=== PATIENT | female | born 1955 | race Caucasian/White ===

== ENCOUNTER 2017-01-02 09:21 | Emergency (ER) | payer BC ==
--- NOTE | 2017-01-02 10:46 | DIAGNOSTIC IMAGING REPORT ---
PROCEDURE: CT HEAD WITHOUT CONTRAST INDICATION: Left homonymous hemianopsia. TECHNIQUE: Noncontrast axial images with sagittal and coronal reformations. COMPARISON: None. FINDINGS: Allowing for mild motion, brain and ventricles are normal. No evidence of an acute process or hemorrhage. Sinuses and mastoids are normal. IMPRESSION: 1. Negative head CT. 2. Findings discussed with Dr. Carlos Butcher at [address] scans at this facility use dose modulation, iterative reconstruction, and/or weight-based dosing when appropriate to reduce radiation dose to as low as reasonably achievable.
--- NOTE | 2017-01-02 12:26 | DIAGNOSTIC IMAGING REPORT ---
PROCEDURE: MRA HEAD WITHOUT CONTRAST INDICATION: Hemianopsia. Dizziness. TECHNIQUE: Thin-cut gradient axial images with 3D MIP reconstructions in sagittal, axial, and coronal projections. COMPARISON: Comparison is made to MRI brain today (01/02/2017). FINDINGS: Left vertebral artery is not visualized suggesting occlusion. Right vertebral artery and basilar artery are normal. Posterior cerebral arteries are patent. Internal carotid arteries, anterior and middle cerebral arteries are normal. [place] is within normal limits. IMPRESSION: 1. Left vertebral artery is not visualized suggesting vascular occlusion (versus hypoplasia). 2. Otherwise normal MR angiogram of the [place] and intracranial vessels. 3. Findings discussed with Dr. Carlos Butcher.
--- NOTE | 2017-01-02 12:26 | DIAGNOSTIC IMAGING REPORT ---
PROCEDURE: MRA HEAD WITHOUT CONTRAST INDICATION: Hemianopsia. Dizziness. TECHNIQUE: Thin-cut gradient axial images with 3D MIP reconstructions in sagittal, axial, and coronal projections. COMPARISON: Comparison is made to MRI brain today (01/02/2017). FINDINGS: Left vertebral artery is not visualized suggesting occlusion. Right vertebral artery and basilar artery are normal. Posterior cerebral arteries are patent. Internal carotid arteries, anterior and middle cerebral arteries are normal. [place] is within normal limits. IMPRESSION: 1. Left vertebral artery is not visualized suggesting vascular occlusion (versus hypoplasia). 2. Otherwise normal MR angiogram of the [place] and intracranial vessels. 3. Findings discussed with Dr. Carlos Butcher.
--- NOTE | 2017-01-02 12:33 | DIAGNOSTIC IMAGING REPORT ---
PROCEDURE: MR BRAIN W/WO CONTRAST INDICATION: Hemianopsia. Dizziness. TECHNIQUE: T1 sagittal and T2 coronal images. T1, T2, FLAIR, gradient, and diffusion axial images of the brain. Following 15 ml of intravenous gadolinium, FAT-SAT T1 sagittal, axial and coronal images were obtained. COMPARISON: Comparison is made to a head CT earlier today (01/02/2017). FINDINGS: There is a 1.4 cm acute area of infarction in the left superior cerebellar vermis (restricted diffusion).. There is a 1.4 cm nonenhancing heterogeneous area of signal in the mesial left occipital lobe (without restricted diffusion). The rest of the brain and ventricles are within normal limits. No evidence of mass effect or hydrocephalous. Sinuses and mastoids are normal. IMPRESSION: 1. There is a 1.4 cm linear area of acute infarction in the left superior cerebellar vermis. 2. There is a 1.4 cm ovoid heterogeneous area of abnormal signal in the left mesial occipital lobe compatible with a subacute area of infarction. 3. Findings discussed with Dr. Carlos Butcher.
--- NOTE | 2017-01-02 12:34 | DIAGNOSTIC IMAGING REPORT ---
PROCEDURE: XR CHEST 1 VIEW INDICATION: CVA. TECHNIQUE: Portable AP view (1230 hours). COMPARISON: None. FINDINGS: Allowing for overlying wires and electrodes, lungs are clear. Heart and mediastinum are normal. Thorax is normal. IMPRESSION: 1. Negative chest.
--- NOTE | 2017-01-02 14:46 | DIAGNOSTIC IMAGING REPORT ---
PROCEDURE: US BILATERAL CAROTID DOPPLER INDICATION: STROKE/CVA TECHNIQUE: Color Doppler duplex imaging of the carotid and vertebral vessels. COMPARISON: None. FINDINGS: Right common carotid artery peak systolic velocity 76 cm/second. Right internal carotid artery peak systolic velocity 98 cm/second. Right external carotid artery peak systolic velocity 97 cm/second. Right ddactcyw-ew-abuwut carotid artery ratio 1.3 Right vertebral artery peak systolic velocity 37 cm/second antegrade. Left common carotid artery peak systolic velocity 75 cm/second. Left internal carotid artery peak systolic velocity 85 cm/second. Left external carotid artery peak systolic velocity 72 cm/second. Left mdutliwf-rh-puaics carotid artery ratio 1.1 Left vertebral artery peak systolic velocity 42 cm/second antegrade. IMPRESSION: 1. Mild atheromatous plaque at the carotid bifurcations. 2. No evidence of significant stenosis. 3. No evidence of vertebral artery occlusion. 4. Findings discussed with Dr. Butcher. Velocity criteria are extrapolated from diameter data as defined by the Society of Radiologists in Ultrasound Consensus Conference, Radiology 2003; 229; 340-346.
--- NOTE | 2017-01-02 14:46 | DIAGNOSTIC IMAGING REPORT ---
PROCEDURE: US BILATERAL CAROTID DOPPLER INDICATION: STROKE/CVA TECHNIQUE: Color Doppler duplex imaging of the carotid and vertebral vessels. COMPARISON: None. FINDINGS: Right common carotid artery peak systolic velocity 76 cm/second. Right internal carotid artery peak systolic velocity 98 cm/second. Right external carotid artery peak systolic velocity 97 cm/second. Right kechfjdr-dc-igiopn carotid artery ratio 1.3 Right vertebral artery peak systolic velocity 37 cm/second antegrade. Left common carotid artery peak systolic velocity 75 cm/second. Left internal carotid artery peak systolic velocity 85 cm/second. Left external carotid artery peak systolic velocity 72 cm/second. Left drvdytkt-ie-oiesys carotid artery ratio 1.1 Left vertebral artery peak systolic velocity 42 cm/second antegrade. IMPRESSION: 1. Mild atheromatous plaque at the carotid bifurcations. 2. No evidence of significant stenosis. 3. No evidence of vertebral artery occlusion. 4. Findings discussed with Dr. Butcher. Velocity criteria are extrapolated from diameter data as defined by the Society of Radiologists in Ultrasound Consensus Conference, Radiology 2003; 229; 340-346.
--- NOTE | 2017-01-02 14:57 | ED NURSING NOTES ---
Clinical Report - Nurses [facility] [address] [place] [address] 01/02/2017 9:24 Patient: LASHAWN ROBERTS I TRIAGE Triage time 09:34. Acuity: LEVEL 3. Chief Complaint: DIZZINESS and WEAKNESS and (Black spot in eye, was disoriented last night). --09:39 Ericka Romo R.N. 09:33 01/02/17. BP: 121/67. HR: 80. RR: 12. O2 saturation: 100%. Temp: 98.3 F. Pain level now 0/10. --09:39 Ericka Romo R.N. Weight: 113.3 kg estimated. Height/Length: 64 inches Per Patient. BMI: 42.9. --09:33 Ericka Romo R.N. Medications Amitriptyline HCl Oral. --09:41 Ericka Romo R.N. Abilify Oral. --09:41 Ericka Romo R.N. Lisinopril Oral. --09:41 Ericka Romo R.N. Lyrica Oral. --09:41 Ericka Romo R.N. Simvastatin Oral. --09:41 Ericka Romo R.N. Allergies Haldol. --09:36 Ericka Romo R.N. Geodon. --09:37 Ericka Romo R.N. The following entry was struck by Ericka Romo R.N., 09:37 (01/02/17) Reason - wrong value. <<STRICKEN ENTRY-- Geod. --09:37 Ericka Romo R.N. --END STRIKE>>. History Historian: patient. This started last night. ( limited peripheral vision, at onset had a pain go across her head). Treatment SENIOR PRODUCT ANALYST: None. PAST MEDICAL HX: Immunizations: up-to-date. SOCIAL HX: Never smoker. No alcohol use or drug use. --09:39 Ericka Romo R.N. PROBLEMS: Pre diabetic. Polyneuropathy. Hypertension. Anxiety Reaction. --09:36 Ericka Romo R.N. PHYSICAL ASSESSMENT To room via wheelchair. Patient gowned. GENERAL / NEURO / PSYCH: Oriented X 4. Appears anxious. Alert. Speech within normal limits. RESPIRATORY: Respirations not labored. --09:40 Ericka Romo R.N. NURSING PROGRESS NOTES Patient gowned. Two patient identifiers checked. Call light placed in reach. Side rails up x 1. Patient ready for evaluation- ED physician notified. --09:40 Ericka Romo R.N. 09:42 01/02/2017 Site #1 started via IV in the right antecubital space with an 20g angiocath, with aseptic technique and good blood return; one attempt. Blood drawn: rainbow set. Labeled in the presence of the patient and sent to the lab. Saline lock flushed with 10 mL saline. --09:42 Ericka Romo R.N. EKG time: (937). EKG was ordered, performed by a tech and shown to the ED physician. --09:45 Dorina Tariq 10:31 01/02/17. HR: 75. RR: 16. O2 saturation: 100%. --10:32 Ericka Romo R.N. The patient is resting quietly. ( CT done and awaiting MRI). --10:32 Ericka Romo R.N. GENERAL / NEURO / PSYCH: Patient is calm and cooperative. Affect appears normal. Alert. Oriented X 4. RESPIRATORY: No respiratory distress. SKIN: Skin is warm. Patient transported to MRI. (1050). Patient returned by wheelchair with nurse and tech. (1200). --12:01 Ericka Romo R.N. 11:59 01/02/17. BP: 107/47. HR: 76. RR: 14. O2 saturation: 100%. Pain level now 0/10. --12:01 Ericka Romo R.N. Patient waiting for (ultra sound). --13:05 Ericka Romo R.N. 13:05 01/02/17. BP: 128/73. HR: 72. RR: 18. O2 saturation: 100%. Pain level now 0/10. --13:06 Ericka Romo R.N. The patient reports no complaints and she is resting quietly. ( unchanged). --13:06 Ericka Romo R.N. 13:55 01/02/17. HR: 76. RR: 16. O2 saturation: 100%. Pain level now 0/10. --13:55 Ericka Romo R.N. ( Ultra sound at the bedside). --13:55 Ericka Romo R.N. 14:58 01/02/2017 Aspirin PO 325 mg given. Allergies verified and confirmed 5 rights. --14:58 Ericka Romo R.N. 14:58 01/02/2017 Site #1 removed upon discharge. Bandaid applied. --14:58 Ericka Romo R.N. DISPOSITION / DISCHARGE Departure time: 15:05. Condition at departure: improved. No learning barriers present. Discharge instructions provided and reviewed with the patient. Patient verbalized understanding. Written instructions provided in [place]. The patient was discharged home and accompanied by spouse. She left the Emergency Department in a wheelchair and via private vehicle. Family member driving. --15:05 Ericka Romo R.N. 14:58 01/02/17. BP: 109/80. HR: 78. RR: 14. O2 saturation: 98%. Pain level now 0/10. --15:05 Ericka Romo R.N. Locked/Released at 01/03/2017 7:06 by Ericka Romo R.N.
--- NOTE | 2017-01-02 14:57 | ED CLINICAL REPORT ---
Clinical Report - Physicians/Mid Levels [facility] [address] [place] [address] 01/02/2017 9:24 Patient: LASHAWN ROBERTS I Time Seen: 09:48 Jan 02 2017. Arrived- By private vehicle. Historian- patient. CPT: ER phys charges level 5 plus (#[id number]). EKG interpretation (#[id number]). HISTORY OF PRESENT ILLNESS Chief Complaint: VISUAL DISTURBANCE. This started yesterday, patient was last known well (yesterday) and is still present (persistent). (Headache yesterday during initial event.). She has had visual disturbance. At its maximum deficit described as moderate. When seen in the E.D.,deficit described as moderate. The patient has had moderate dizziness described as a light-headedness (transient , now resolved.). No altered mental status or blackouts. Usually is alert and oriented X3 and has normal mobility. Similar symptoms previously: None. Recent medical care: Not recently seen/assessed. REVIEW OF SYSTEMS No fever, head injury, chest pain or pain or difficulty breathing. No cough, sputum production, sore throat or throat or abdominal pain. No nausea, diarrhea, black stools or stools or difficulty with urination. No skin rash or rash, enlarged lymph nodes, joint pain or vomiting. No chills, fever, cough, difficulty breathing or bloody stools. No hematuria, weakness, diabetic symptoms or easy bruising. The patient has had a headache. No difficulty walking. All systems otherwise negative, except as recorded above. PAST HISTORY ( Pre diabetic. Polyneuropathy. Hypertension. Anxiety Reaction.). Hyperlipidemia. Medications: Simvastatin Oral. Lyrica Oral. Lisinopril Oral. Abilify Oral. Amitriptyline HCl Oral. Allergies: Geodon. Haldol. SOCIAL HISTORY Never smoker. No alcohol use or drug use. ADDITIONAL NOTES The nursing notes have been reviewed. PHYSICAL EXAM Vital Signs: 01/02/2017 09:33 BP: 121/67. HR: 80. RR: 12. O2 saturation: 100%. Appearance: Alert. No acute distress. Head: Head atraumatic. Eyes: Pupils equal, round and reactive to light. Visual field deficit bilaterally right-sided homonymous hemianopsia. ENT: Normal ENT inspection. Airway intact. Pharynx normal. Neck: Normal inspection. Neck supple. No carotid bruit. CVS: Normal heart rate and rhythm. Heart sounds normal. Pulses normal. Respiratory: No respiratory distress. Breath sounds normal. Abdomen: Soft and nontender. Back: Normal inspection. Skin: Skin warm. Normal skin color. No rash. Extremities: Extremities exhibit normal ROM. No lower extremity edema. Neuro: Alert. Oriented X 3. Mood/affect normal. Speech normal. Cranial nerves normal (as tested). No cerebellar findings. No motor deficit. No sensory deficit. Reflexes normal. NIH Stroke Scale: score 1. Level of Consciousness: alert (0). LOC Questions: both (0). LOC Commands: both (0). Best gaze: normal (0). Visual field loss: partial hemianopsia (1). Facial palsy: normal (0). Motor arm: no drift right arm (0) and no drift left arm (0). Motor leg: no drift right leg (0) and no drift left leg (0). Limb ataxia: none (0). Sensory loss: none (0). Aphasia: none (0). Dysarthria: normal (0). Extinction and inattention: none (0). LABS, X-RAYS, AND EKG EKG: Normal EKG. Chest X-ray: Normal Chest X-Ray. CT Head: No acute disease. MRI Brain: Note- MRA cannot see left vertebral artery. Acute infarct 14mm left cerebellar hemisphere and left 1.4 cm L mesial occiptial lobe: appears subacute. Study type: The study was independently viewed by me, interpreted by the radiologist and discussed with the radiologist. Laboratory Tests: CBC w Diff: (KATELYN: 01/02/2017 09:45) ( MsgRcvd 01/02/2017 10:45) Final results Test Result Flag Units (Reference) WHITE BLOOD COUNT 7.6 K/uL (4.5-11.5) RED BLOOD COUNT 5.28 H M/uL (4.00-5.20) HEMOGLOBIN 12.9 gm/dL (12.0-16.0) HEMATOCRIT 40.4 % (36.0-46.0) MEAN CELL VOLUME 77 L fL (80-100) MEAN CORPUSCULAR HGB 25 L pg (26-34) MEAN CORPUSCULAR HGB CONC 32 g/dL (31-37) RED CELL DISTRIBUTION WIDTH 17.1 H % (11.6-14.8) PLATELET COUNT 255 K/uL (150-400) NEUTROPHIL % 53.5 % (50-75) LYMPH % 37.4 % (25-40) MONO % 6.3 % (3-14) EOSINOPHIL % 2.0 % (0-4) BASOPHIL % 0.8 % (0-2) CHEM 13 PANEL: (KATELYN: 01/02/2017 09:45) ( MsgRcvd 01/02/2017 10:36) Final results Test Result Flag Units (Reference) GLUCOSE 121 H mg/dL (70-110) BUN 11 mg/dL (7-18) CREATININE 0.9 mg/dL (0.6-1.3) Estimated GFR >60 mL/min Estimated GFR- >60 mL/min Note: Persistent reduction over 3 months in eGFR<60 mL/min/1.73 m2 defines CKD. Patients with eGFR values>=60 mL/min/1.73 m2 may also have CKD if evidence ofpersistent proteinuria. Additional information may be foundat www.[email or web address].org. SODIUM 139 mmol/L (136-145) POTASSIUM 4.2 mmol/L (3.5-5.1) CHLORIDE 103 mmol/L (98-107) CARBON DIOXIDE 27 mmol/L (21-32) CALCIUM 8.8 mg/dL (8.5-10.1) TOTAL PROTEIN 7.7 g/dL (6.4-8.2) ALBUMIN 3.6 g/dL (3.3-5.0) BILIRUBIN, TOTAL 0.5 mg/dL (0.0-1.0) ALKALINE PHOSPHATASE 66 U/L (46-116) AST (SGOT) 17 U/L (15-37) ALT (SGPT) 27 U/L (12-78) MAGNESIUM 2.3 mg/dL (1.8-2.4) CPK 32 U/L (24-260) TROPONIN I <0.05 L ng/mL (0.00-1.5) TROPONIN REFERENCE RANGE:<0.1 NEGATIVE0.1-1.5 INDETERMINANT>1.5 POSITIVE . Note - Tests: (Carotid doppler : Normal antegrade flow bilaterally.). PROGRESS AND PROCEDURES Course of Care: Crissy Patient has a homonymous hemianopsia with field cut on the right side. She has no other neurologic spines. Her GCS is 15 and her NIH scale is 1. 14:32 01/02/17. Carotid [place] [facility] [place]. Discussed case with on-call health care provider, (Leonila Last: stroke team. Recommends out patient holter for 30 days, coag studies and echocardiogram.). Reviewed test results. Agreed upon treatment plan. Refers case to other health care provider. Patient/family counseled. Disposition: Discharged. Condition: stable and unchanged. CLINICAL IMPRESSION Nontraumatic cerebrovascular accident- embolic ischemic infarct. TPA was not administered . tPA was not administered because the time patient was last known well was greater than 3 hours prior to arrival. (Affecting vision). Acute homonomous Hemianopsia due to Stroke. INSTRUCTIONS No strenuous activity. Rest. (Aspirin 325 mg every day.). Warnings: Further evaluation is necessary. GENERAL WARNINGS: Return or contact your physician immediately if your condition worsens or changes unexpectedly, if not improving as expected, or if other problems arise. Specifically return if problem returns. Your Current Medications: CONTINUE TAKING THE FOLLOWING MEDICATIONS: Abilify Oral. Amitriptyline HCl Oral. Lisinopril Oral. Lyrica Oral. Simvastatin Oral. Follow-up: Follow up with a neurologist- as recommended by your primary care physician. Call for the next available appointment. Understanding of the discharge instructions verbalized by patient. Follow-up with: Michael Castañeda MD, [facility], , [facility], [address] [place] [address] Follow up Wednesday in two days. Call for the next available appointment. Reason for referral: For cardiac echo , Holtor monitor and coagulation studies. (Electronically signed by Carlos Butcher MD 01/02/2017 17:49)
--- NOTE | 2017-01-02 14:57 | ED CLINICAL REPORT ---
Clinical Report - Physicians/Mid Levels [facility] [address] [place] [address] 01/02/2017 9:24 Patient: LASHAWN ROBERTS I Time Seen: 09:48 Jan 02 2017. Arrived- By private vehicle. Historian- patient. CPT: ER phys charges level 5 plus (#[id number]). EKG interpretation (#[id number]). HISTORY OF PRESENT ILLNESS Chief Complaint: VISUAL DISTURBANCE. This started yesterday, patient was last known well (yesterday) and is still present (persistent). (Headache yesterday during initial event.). She has had visual disturbance. At its maximum deficit described as moderate. When seen in the E.D.,deficit described as moderate. The patient has had moderate dizziness described as a light-headedness (transient , now resolved.). No altered mental status or blackouts. Usually is alert and oriented X3 and has normal mobility. Similar symptoms previously: None. Recent medical care: Not recently seen/assessed. REVIEW OF SYSTEMS No fever, head injury, chest pain or pain or difficulty breathing. No cough, sputum production, sore throat or throat or abdominal pain. No nausea, diarrhea, black stools or stools or difficulty with urination. No skin rash or rash, enlarged lymph nodes, joint pain or vomiting. No chills, fever, cough, difficulty breathing or bloody stools. No hematuria, weakness, diabetic symptoms or easy bruising. The patient has had a headache. No difficulty walking. All systems otherwise negative, except as recorded above. PAST HISTORY ( Pre diabetic. Polyneuropathy. Hypertension. Anxiety Reaction.). Hyperlipidemia. Medications: Simvastatin Oral. Lyrica Oral. Lisinopril Oral. Abilify Oral. Amitriptyline HCl Oral. Allergies: Geodon. Haldol. SOCIAL HISTORY Never smoker. No alcohol use or drug use. ADDITIONAL NOTES The nursing notes have been reviewed. PHYSICAL EXAM Vital Signs: 01/02/2017 09:33 BP: 121/67. HR: 80. RR: 12. O2 saturation: 100%. Appearance: Alert. No acute distress. Head: Head atraumatic. Eyes: Pupils equal, round and reactive to light. Visual field deficit bilaterally right-sided homonymous hemianopsia. ENT: Normal ENT inspection. Airway intact. Pharynx normal. Neck: Normal inspection. Neck supple. No carotid bruit. CVS: Normal heart rate and rhythm. Heart sounds normal. Pulses normal. Respiratory: No respiratory distress. Breath sounds normal. Abdomen: Soft and nontender. Back: Normal inspection. Skin: Skin warm. Normal skin color. No rash. Extremities: Extremities exhibit normal ROM. No lower extremity edema. Neuro: Alert. Oriented X 3. Mood/affect normal. Speech normal. Cranial nerves normal (as tested). No cerebellar findings. No motor deficit. No sensory deficit. Reflexes normal. NIH Stroke Scale: score 1. Level of Consciousness: alert (0). LOC Questions: both (0). LOC Commands: both (0). Best gaze: normal (0). Visual field loss: partial hemianopsia (1). Facial palsy: normal (0). Motor arm: no drift right arm (0) and no drift left arm (0). Motor leg: no drift right leg (0) and no drift left leg (0). Limb ataxia: none (0). Sensory loss: none (0). Aphasia: none (0). Dysarthria: normal (0). Extinction and inattention: none (0). LABS, X-RAYS, AND EKG EKG: Normal EKG. Chest X-ray: Normal Chest X-Ray. CT Head: No acute disease. MRI Brain: Note- MRA cannot see left vertebral artery. Acute infarct 14mm left cerebellar hemisphere and left 1.4 cm L mesial occiptial lobe: appears subacute. Study type: The study was independently viewed by me, interpreted by the radiologist and discussed with the radiologist. Laboratory Tests: CBC w Diff: (KATELYN: 01/02/2017 09:45) ( MsgRcvd 01/02/2017 10:45) Final results Test Result Flag Units (Reference) WHITE BLOOD COUNT 7.6 K/uL (4.5-11.5) RED BLOOD COUNT 5.28 H M/uL (4.00-5.20) HEMOGLOBIN 12.9 gm/dL (12.0-16.0) HEMATOCRIT 40.4 % (36.0-46.0) MEAN CELL VOLUME 77 L fL (80-100) MEAN CORPUSCULAR HGB 25 L pg (26-34) MEAN CORPUSCULAR HGB CONC 32 g/dL (31-37) RED CELL DISTRIBUTION WIDTH 17.1 H % (11.6-14.8) PLATELET COUNT 255 K/uL (150-400) NEUTROPHIL % 53.5 % (50-75) LYMPH % 37.4 % (25-40) MONO % 6.3 % (3-14) EOSINOPHIL % 2.0 % (0-4) BASOPHIL % 0.8 % (0-2) CHEM 13 PANEL: (KATELYN: 01/02/2017 09:45) ( MsgRcvd 01/02/2017 10:36) Final results Test Result Flag Units (Reference) GLUCOSE 121 H mg/dL (70-110) BUN 11 mg/dL (7-18) CREATININE 0.9 mg/dL (0.6-1.3) Estimated GFR >60 mL/min Estimated GFR- >60 mL/min Note: Persistent reduction over 3 months in eGFR<60 mL/min/1.73 m2 defines CKD. Patients with eGFR values>=60 mL/min/1.73 m2 may also have CKD if evidence ofpersistent proteinuria. Additional information may be foundat www.kidney.org. SODIUM 139 mmol/L (136-145) POTASSIUM 4.2 mmol/L (3.5-5.1) CHLORIDE 103 mmol/L (98-107) CARBON DIOXIDE 27 mmol/L (21-32) CALCIUM 8.8 mg/dL (8.5-10.1) TOTAL PROTEIN 7.7 g/dL (6.4-8.2) ALBUMIN 3.6 g/dL (3.3-5.0) BILIRUBIN, TOTAL 0.5 mg/dL (0.0-1.0) ALKALINE PHOSPHATASE 66 U/L (46-116) AST (SGOT) 17 U/L (15-37) ALT (SGPT) 27 U/L (12-78) MAGNESIUM 2.3 mg/dL (1.8-2.4) CPK 32 U/L (24-260) TROPONIN I <0.05 L ng/mL (0.00-1.5) TROPONIN REFERENCE RANGE:<0.1 NEGATIVE0.1-1.5 INDETERMINANT>1.5 POSITIVE . Note - Tests: (Carotid doppler : Normal antegrade flow bilaterally.). PROGRESS AND PROCEDURES Course of Care: Crissy Patient has a homonymous hemianopsia with field cut on the right side. She has no other neurologic spines. Her GCS is 15 and her NIH scale is 1. 14:32 01/02/17. Carotid doppler results back [facility] call to stroke team. Discussed case with on-call health care provider, (Leonila Last: stroke team. Recommends out patient holter for 30 days, coag studies and echocardiogram.). Reviewed test results. Agreed upon treatment plan. Refers case to other health care provider. Patient/family counseled. Disposition: Discharged. Condition: stable and unchanged. CLINICAL IMPRESSION Nontraumatic cerebrovascular accident- embolic ischemic infarct. TPA was not administered . tPA was not administered because the time patient was last known well was greater than 3 hours prior to arrival. (Affecting vision). Acute homonomous Hemianopsia due to Stroke. INSTRUCTIONS No strenuous activity. Rest. (Aspirin 325 mg every day.). Warnings: Further evaluation is necessary. GENERAL WARNINGS: Return or contact your physician immediately if your condition worsens or changes unexpectedly, if not improving as expected, or if other problems arise. Specifically return if problem returns. Your Current Medications: CONTINUE TAKING THE FOLLOWING MEDICATIONS: Abilify Oral. Amitriptyline HCl Oral. Lisinopril Oral. Lyrica Oral. Simvastatin Oral. Follow-up: Follow up with a neurologist- as recommended by your primary care physician. Call for the next available appointment. Understanding of the discharge instructions verbalized by patient. Follow-up with: Michael Castañeda MD, [facility], , [facility], [address] [place] [address] Follow up Wednesday in two days. Call for the next available appointment. Reason for referral: For cardiac echo , Holtor monitor and coagulation studies. (Electronically signed by Carlos Butcher MD 01/02/2017 17:49)
--- NOTE | 2017-01-02 14:57 | ED ORDER SUMMARY ---
..... Patient: LASHAWN ROBERTS I OrderSheet [facility] VisitID: [id number] [address] [place] [address] 61y, F Registration Date/Time: 01/02/2017 ORDER SHEET Weight: 113.3 kg (estimated) Allergies: Haldol, Geodon GENERAL ORDERS: CT Head wo Cont Urgent (10:09 01/02/2017 Rudolph CRANDALL) (Ack 10:10 OHjeremy) (10:31 OHernandez) MRA Neck w/wo Cont (Not Applicable) Urgent (10:01/02/2017 Rudolph CRANDALL) (Ack 10:16 Salbador) (Cancelled: Other10:32 Rudolph CRANDALL) MRI Brain w/wo IACS w/wo Cont (Not Applicable) Urgent (10:01/02/2017 Rudolph CRANDALL) (Ack 10:16 Salbador) (11:54 OHernandez) Decorator Hand (Continuous) (10:01/02/2017 Rudolph CRANDALL) (10:14 DMaziarka R.N.) (Ack 10:16 OHjeremy) Chest 1V Urgent (10:12 01/02/2017 Rudolph CRANDALL) (Ack 10:17 OHjeremy) (14:52 DMaziarka R.N.) Cardiac Panel Stat (10:12 01/02/2017 Rudolph CRANDALL) (10:14 DMaziarka R.N.) (Ack 10:17 Salbador) EKG - ER Stat (10:12 01/02/2017 Rudolph CRANDALL) (10:14 DMaziarka R.N.) (Ack 10:16 Salbador) Pulse oximeter (10:01/02/2017 Rudolph CRANDALL) (10:14 DMaziarka R.N.) (Ack 10:17 OHjeremy) MRA Head wo Cont (Not Applicable) Urgent (10:32 01/02/2017 Rudolph CRANDALL) (Ack 10:40 OHjeremy) (11:54 OHernandez) US Carotid Doppler Bilat (check left vertebral artery. ) Urgent (12:21 01/02/2017 Rudolph CRANDALL) (12:47 Frank EnriquezNEmiliana) MEDICATION ORDERS: Aspirin PO 325 mg (NOW) (14:55 01/02/2017 Rudolph CRANDALL) (14:58 Frank Honeycutt) IV FLUIDS: IV Saline Lock (10:11 01/02/2017 Rudolph CRANDALL) (Ack 10:14 Frank Honeycutt) (11:24 Isaías Honeycutt) ORDER SHEET NOTES: [Electronically signed by Carlos Butcher MD (17:49 01/02/2017)] [Electronically signed by Ericka Romo R.N. (07:06 01/03/2017)] [Electronically locked/signed by Ericka Romo R.N. (07:06 01/03/2017)]
--- NOTE | 2017-01-02 14:57 | ED ORDER SUMMARY ---
..... Patient: LASHAWN ROBERTS I OrderSheet [facility] VisitID: [id number] [address] [place] [address] 61y, F Registration Date/Time: 01/02/2017 ORDER SHEET Weight: 113.3 kg (estimated) Allergies: Haldol, Geodon GENERAL ORDERS: CT Head wo Cont Urgent (10:09 01/02/2017 Rudolph CRANDALL) (Ack 10:10 OHjeremy) (10:31 OHernandez) MRA Neck w/wo Cont (Not Applicable) Urgent (10:01/02/2017 Rudolph CRANDALL) (Ack 10:16 Salbador) (Cancelled: Other10:32 Rudolph CRANDALL) MRI Brain w/wo IACS w/wo Cont (Not Applicable) Urgent (10:01/02/2017 Rudolph CRANDALL) (Ack 10:16 Salbador) (11:54 OHernandez) Logging Tractor Operator Swamp (Continuous) (10:01/02/2017 Rudolph CRANDALL) (10:14 DMaziarka R.N.) (Ack 10:16 OHjeremy) Chest 1V Urgent (10:12 01/02/2017 Rudolph CRANDALL) (Ack 10:17 OHjeremy) (14:52 DMaziarka R.N.) Cardiac Panel Stat (10:12 01/02/2017 Rudolph CRANDALL) (10:14 DMaziarka R.N.) (Ack 10:17 Salbador) EKG - ER Stat (10:12 01/02/2017 Rudolph CRANDALL) (10:14 DMaziarka R.N.) (Ack 10:16 Salbador) Pulse oximeter (10:01/02/2017 Rudolph CRANDALL) (10:14 DMaziarka R.N.) (Ack 10:17 OHjeremy) MRA Head wo Cont (Not Applicable) Urgent (10:32 01/02/2017 Rudolph CRANDALL) (Ack 10:40 OHjeremy) (11:54 OHernandez) US Carotid Doppler Bilat (check left vertebral artery. ) Urgent (12:21 01/02/2017 Rudolph CRANDALL) (12:47 Frank EnriquezNEmiliana) MEDICATION ORDERS: Aspirin PO 325 mg (NOW) (14:55 01/02/2017 Rudolph CRANDALL) (14:58 Frank Honeycutt) IV FLUIDS: IV Saline Lock (10:11 01/02/2017 Rudolph CRANDALL) (Ack 10:14 Frank Honeycutt) (11:24 Isaías Honeycutt) ORDER SHEET NOTES: [Electronically signed by Carlos Butcher MD (17:49 01/02/2017)] [Electronically signed by Ericka Romo R.N. (07:06 01/03/2017)] [Electronically locked/signed by Ericka Romo R.N. (07:06 01/03/2017)]
--- NOTE | 2017-01-02 14:57 | ED NURSING NOTES ---
Clinical Report - Nurses [facility] [address] [place] [address] 01/02/2017 9:24 Patient: LASHAWN ROBERTS I TRIAGE Triage time 09:34. Acuity: LEVEL 3. Chief Complaint: DIZZINESS and WEAKNESS and (Black spot in eye, was disoriented last night). --09:39 Ericka Romo R.N. 09:33 01/02/17. BP: 121/67. HR: 80. RR: 12. O2 saturation: 100%. Temp: 98.3 F. Pain level now 0/10. --09:39 Ericka Romo R.N. Weight: 113.3 kg estimated. Height/Length: 64 inches Per Patient. BMI: 42.9. --09:33 Ericka Romo R.N. Medications Amitriptyline HCl Oral. --09:41 Ericka Romo R.N. Abilify Oral. --09:41 Ericka Romo R.N. Lisinopril Oral. --09:41 Ericka Romo R.N. Lyrica Oral. --09:41 Ericka Romo R.N. Simvastatin Oral. --09:41 Ericka Romo R.N. Allergies Haldol. --09:36 Ericka Romo R.N. Geodon. --09:37 Ericka Romo R.N. The following entry was struck by Ericka Romo R.N., 09:37 (01/02/17) Reason - wrong value. <<STRICKEN ENTRY-- Geod. --09:37 Ericka Romo R.N. --END STRIKE>>. History Historian: patient. This started last night. ( limited peripheral vision, at onset had a pain go across her head). Treatment CROP RANCH HAND: None. PAST MEDICAL HX: Immunizations: up-to-date. SOCIAL HX: Never smoker. No alcohol use or drug use. --09:39 Ericka Romo R.N. PROBLEMS: Pre diabetic. Polyneuropathy. Hypertension. Anxiety Reaction. --09:36 Ericka Romo R.N. PHYSICAL ASSESSMENT To room via wheelchair. Patient gowned. GENERAL / NEURO / PSYCH: Oriented X 4. Appears anxious. Alert. Speech within normal limits. RESPIRATORY: Respirations not labored. --09:40 Ericka Romo R.N. NURSING PROGRESS NOTES Patient gowned. Two patient identifiers checked. Call light placed in reach. Side rails up x 1. Patient ready for evaluation- ED physician notified. --09:40 Ericka Romo R.N. 09:42 01/02/2017 Site #1 started via IV in the right antecubital space with an 20g angiocath, with aseptic technique and good blood return; one attempt. Blood drawn: rainbow set. Labeled in the presence of the patient and sent to the lab. Saline lock flushed with 10 mL saline. --09:42 Ericka Romo R.N. EKG time: (937). EKG was ordered, performed by a tech and shown to the ED physician. --09:45 Dorina Tariq 10:31 01/02/17. HR: 75. RR: 16. O2 saturation: 100%. --10:32 Ericka Romo R.N. The patient is resting quietly. ( CT done and awaiting MRI). --10:32 Ericka Romo R.N. GENERAL / NEURO / PSYCH: Patient is calm and cooperative. Affect appears normal. Alert. Oriented X 4. RESPIRATORY: No respiratory distress. SKIN: Skin is warm. Patient transported to MRI. (1050). Patient returned by wheelchair with nurse and tech. (1200). --12:01 Ericka Romo R.N. 11:59 01/02/17. BP: 107/47. HR: 76. RR: 14. O2 saturation: 100%. Pain level now 0/10. --12:01 Ericka Romo R.N. Patient waiting for (ultra sound). --13:05 Ericka Romo R.N. 13:05 01/02/17. BP: 128/73. HR: 72. RR: 18. O2 saturation: 100%. Pain level now 0/10. --13:06 Ericka Romo R.N. The patient reports no complaints and she is resting quietly. ( unchanged). --13:06 Ericka Romo R.N. 13:55 01/02/17. HR: 76. RR: 16. O2 saturation: 100%. Pain level now 0/10. --13:55 Ericka Romo R.N. ( Ultra sound at the bedside). --13:55 Ericka Romo R.N. 14:58 01/02/2017 Aspirin PO 325 mg given. Allergies verified and confirmed 5 rights. --14:58 Ericka Romo R.N. 14:58 01/02/2017 Site #1 removed upon discharge. Bandaid applied. --14:58 Ericka Romo R.N. DISPOSITION / DISCHARGE Departure time: 15:05. Condition at departure: improved. No learning barriers present. Discharge instructions provided and reviewed with the patient. Patient verbalized understanding. Written instructions provided in Kazakh. The patient was discharged home and accompanied by spouse. She left the Emergency Department in a wheelchair and via private vehicle. Family member driving. --15:05 Ericka Romo R.N. 14:58 01/02/17. BP: 109/80. HR: 78. RR: 14. O2 saturation: 98%. Pain level now 0/10. --15:05 Ericka Romo R.N. Locked/Released at 01/03/2017 7:06 by Ericka Romo R.N.
--- NOTE | 2017-01-03 07:06 | ED MAR SUMMARY ---
..... Medication Administration Record [facility] [address] [place] [address] Patient: LASHAWN ROBERTS I Visit ID: [id number] 61y, F Weight: 113.3 kg Height/Length: 64 in BMI: 42.9 ALLERGIES: Haldol, Geodon Given 14:58 01/02/2017 Ericka Romo R.N. Medication Administered: ASPIRIN [PO], Dose: 325 mg PO. Medication Ordered: Aspirin PO 325 mg (NOW).
--- NOTE | 2017-01-03 07:06 | ED DISCHARGE INSTRUCTIONS ---
Patient: LASHAWN ROBERTS I General Instructions [facility] VisitID: [id number] [address] [place] [address] 61y, F Registration Date/Time: 01/02/2017 Nontraumatic cerebrovascular accident- embolic ischemic infarct. TPA was not administered . tPA was not administered because the time patient was last known well was greater than 3 hours prior to arrival. (Affecting vision). Acute homonomous Hemianopsia due to Stroke. INSTRUCTIONS No strenuous activity. Rest. (Aspirin 325 mg every day.). Warnings: Further evaluation is necessary. GENERAL WARNINGS: Return or contact your physician immediately if your condition worsens or changes unexpectedly, if not improving as expected, or if other problems arise. Specifically return if problem returns. Your Current Medications: CONTINUE TAKING THE FOLLOWING MEDICATIONS: Abilify Oral. Amitriptyline HCl Oral. Lisinopril Oral. Lyrica Oral. Simvastatin Oral. Follow-up: Follow up with a neurologist- as recommended by your primary care physician. Call for the next available appointment. Understanding of the discharge instructions verbalized by patient. Follow-up with: Michael Castañeda MD, [facility], , [facility], [address] [place] [address] Follow up Wednesday in two days. Call for the next available appointment. Reason for referral: For cardiac echo , Holtor monitor and coagulation studies. No strenuous activity. Rest. (Electronically signed by Carlos Butcher MD 01/02/2017 17:49)
--- NOTE | 2017-01-03 07:06 | ED MAR SUMMARY ---
..... Medication Administration Record [facility] [address] [place] [place] [address] Patient: LASHAWN ROBERTS I Visit ID: [id number] 61y, F Weight: 113.3 kg Height/Length: 64 in BMI: 42.9 ALLERGIES: Haldol, Geodon Given 14:58 01/02/2017 Ericka Romo R.N. Medication Administered: ASPIRIN [PO], Dose: 325 mg PO. Medication Ordered: Aspirin PO 325 mg (NOW).
--- NOTE | 2017-01-03 07:06 | ED DISCHARGE INSTRUCTIONS ---
Patient: LASHAWN ROBERTS I General Instructions [facility] VisitID: [id number] [address] [place] [address] 61y, F Registration Date/Time: 01/02/2017 Nontraumatic cerebrovascular accident- embolic ischemic infarct. TPA was not administered . tPA was not administered because the time patient was last known well was greater than 3 hours prior to arrival. (Affecting vision). Acute homonomous Hemianopsia due to Stroke. INSTRUCTIONS No strenuous activity. Rest. (Aspirin 325 mg every day.). Warnings: Further evaluation is necessary. GENERAL WARNINGS: Return or contact your physician immediately if your condition worsens or changes unexpectedly, if not improving as expected, or if other problems arise. Specifically return if problem returns. Your Current Medications: CONTINUE TAKING THE FOLLOWING MEDICATIONS: Abilify Oral. Amitriptyline HCl Oral. Lisinopril Oral. Lyrica Oral. Simvastatin Oral. Follow-up: Follow up with a neurologist- as recommended by your primary care physician. Call for the next available appointment. Understanding of the discharge instructions verbalized by patient. Follow-up with: Michael Castañeda MD, [facility], , [facility], [address] [place] [address] Follow up Wednesday in two days. Call for the next available appointment. Reason for referral: For cardiac echo , Holtor monitor and coagulation studies. No strenuous activity. Rest. (Electronically signed by Carlos Butcher MD 01/02/2017 17:49)
--- NOTE | 2017-01-03 07:06 | ED MED RECONCILIATION SUMMARY ---
Patient: LASHAWN ROBERTS I Medication Reconciliation Report [facility] VisitID: [id number] [address] [place] [address] 61y, F Registration Date/Time: 01/02/2017 Weight: 113.3 kg Height/Length: 64 in. BMI: 42.9 ALLERGIES: Geodon, Haldol The patient's Home Medications are listed below: CONTINUE TAKING THE FOLLOWING MEDICATIONS: Abilify Oral Amitriptyline HCl Oral Lisinopril Oral Lyrica Oral Simvastatin Oral The source(s) of the original Home Medication information: Not obtained. The following Medications were given to the patient in the Emergency Department: Aspirin [PO] PO 325 mg, administered: 01/02/2017 2:58:00 PM The following Medications were prescribed to the patient: None.
--- NOTE | 2017-01-03 07:06 | ED MED RECONCILIATION SUMMARY ---
Patient: LASHAWN ROBERTS I Medication Reconciliation Report [facility] VisitID: [id number] [address] [place] [address] 61y, F Registration Date/Time: 01/02/2017 Weight: 113.3 kg Height/Length: 64 in. BMI: 42.9 ALLERGIES: Geodon, Haldol The patient's Home Medications are listed below: CONTINUE TAKING THE FOLLOWING MEDICATIONS: Abilify Oral Amitriptyline HCl Oral Lisinopril Oral Lyrica Oral Simvastatin Oral The source(s) of the original Home Medication information: Not obtained. The following Medications were given to the patient in the Emergency Department: Aspirin [PO] PO 325 mg, administered: 01/02/2017 2:58:00 PM The following Medications were prescribed to the patient: None.
== END 2017-01-02 15:05 | disposition home or self-care (01) ==
LOC: ED SRH 09:21
DX: I63.9 Cerebral infarction, unspecified (principal); R29.701 NIHSS score 1; H53.461 Homonymous bilateral field defects, right side; I10 Essential (primary) hypertension; E78.5 Hyperlipidemia, unspecified; Z79.899 Other long term (current) drug therapy; Z88.8 Allergy status to other drugs, medicaments and biological substances
CPT/HCPCS: 90100; 90616; 92610; 92720; 95059